=== PATIENT | female | born 1980 | race Caucasian/White ===

== ENCOUNTER 2020-06-20 16:39 | Emergency (ER) | payer MEDICAID ==
[~2020-06-20] VITALS: Ht 157.5 cm; Wt 100.0 kg
[~2020-06-20 16:39] MED LIST: CYCL-1 PO; METH4TAB81 PO; NAPR-56 PO
[2020-06-20] MEDS ORDERED: AMOX-422 PO (17:21)
[2020-06-20 17:42] VITALS: BP 160/80
== END 2020-06-20 17:35 | disposition home or self-care (01) ==
LOC: ER 16:40
DX: H72.92 Unspecified perforation of tympanic membrane, left ear (principal); H92.02 Otalgia, left ear; Z88.8 Allergy status to other drugs, medicaments and biological substances; Z79.2 Long term (current) use of antibiotics; Z79.899 Other long term (current) drug therapy
CPT/HCPCS: 99283

== ENCOUNTER 2020-09-18 19:57 | Emergency (ER) | payer MEDICAID ==
[~2020-09-18] VITALS: Ht 157.5 cm; Wt 100.0 kg
[2020-09-18 20:08] VITALS: BP 165/87
[2020-09-18] MEDS ORDERED: ERYT1OIN6 EACHEYE (22:28)
== END 2020-09-18 23:01 | disposition home or self-care (01) ==
LOC: ER 19:59
DX: H10.9 Unspecified conjunctivitis (principal); Z88.5 Allergy status to narcotic agent; Z79.899 Other long term (current) drug therapy
CPT/HCPCS: 99283

== ENCOUNTER 2024-05-07 09:34 | Emergency (ER) | payer MEDICAID ==
[~2024-05-07] VITALS: Ht 157.5 cm; Wt 97.7 kg
[2024-05-07] MEDS ORDERED: normal saline 1000ML IV soln IVB ONE (10:20)
[2024-05-07] MEDS ORDERED: ondansetron/PF 4mg/2ml inj IV ONE (10:20)
[2024-05-07 10:35] LABS: BASOPHILS % (AUTO) 0.5 % (0-1); EOSINOPHILS # (AUTO) 0.2 X10'3 (0-0.9); EOSINOPHILS % (AUTO) 2.8 % (0-6); HEMOGLOBIN 14.5 g/dl (12.0-16.0); LYMPHOCYTES # (AUTO) 1.9 X10'3 (1.1-4.8); LYMPHOCYTES % (AUTO) 26.5 % (21-51); MEAN CORPUSCULAR HEMOGLOBIN 29.2 PG (27.0-31.0); MEAN CORPUSCULAR HGB CONC 33.8 g/dL (33.0-36.5); MEAN CORPUSCULAR VOLUME 86.3 FL (78-98); MEAN PLATELET VOLUME 8.1 FL (7.4-10.4); MONOCYTES # (AUTO) 0.4 X10'3 (0-0.9); MONOCYTES % (AUTO) 4.9 % (2-12); NEUTROPHILS # (AUTO) 4.7 X10'3 (1.8-7.7); NEUTROPHILS % (AUTO) 65.3 % (42-75); PLATELET COUNT 227 X10'3 (140-440); RED BLOOD COUNT 4.98 X10'6 (4.20-5.60); RED CELL DISTRIBUTION WIDTH 13.9 % (11.5-14.5); WHITE BLOOD COUNT 7.3 X10'3 (4.5-11.0)
[2024-05-07 10:57] LABS: ALBUMIN 3.8 G/DL (3.4-5.0); ANION GAP 8 (8-16); BLOOD UREA NITROGEN 9 MG/DL (7-18); BUN/CREATININE RATIO 11.7 (10.0-20.0); CALCIUM 8.9 MG/DL (8.5-10.1); CHLORIDE 106 MMOL/L (99-107); CREATININE 0.77 MG/DL (0.40-0.90); GLUCOSE 97 MG/DL (70-104); LIPASE 31 U/L (16-77); POTASSIUM 3.8 MMOL/L (3.5-5.1); SODIUM 139 MMOL/L (135-145); TOTAL CARBON DIOXIDE 25.3 MMOL/L (24-32); eCRCL 75 ML/MIN; eGFR 82 ML/MIN
[2024-05-07 11:01] LABS: BILIRUBIN,URINE NEGATIVE (Neg); CLARITY,URINE CLOUDY (Clear); COLOR,URINE YELLOW (Yellow); GLUCOSE, URINE NEGATIVE (Neg); KETONES,URINE NEGATIVE (Neg); LEUKOCYTE ESTERASE ,URINE NEGATIVE (Neg); NITRITES, URINE NEGATIVE (Neg); OCCULT BLOOD,URINE NEGATIVE (Neg); PH,URINE 5.5 (4.8-8.0); PROTEIN,URINE NEGATIVE (Neg); UROBILINOGEN,URINE 0.2 E.U/dL (0.2-1.0)
[2024-05-07 11:02] LABS: UA COLLECTION TYPE CLN CATCH MIDSTREAM
[2024-05-07 11:03] LABS: AMORPHOUS URATES 1+; BACTERIA,URINE NONE SEEN /HPF (Neg); MUCUS STRANDS NONE SEEN /LPF (Neg); RBC,URINE NONE SEEN /HPF (0-2); SQUAMOUS EPITHELIAL CELL,UR NONE SEEN /LPF (FEW); WBC,URINE 0-4 /HPF (0-4)
[2024-05-07 11:43] VITALS: BP 120/60; PULSE 74; RESP 16; TEMP 97.3; O2SAT 100
== END 2024-05-07 11:45 | disposition home or self-care (01) ==
LOC: ER 09:35
DX: R10.11 Right upper quadrant pain (principal); R11.0 Nausea; R19.7 Diarrhea, unspecified; Z88.5 Allergy status to narcotic agent; Z79.899 Other long term (current) drug therapy
CPT/HCPCS: 36415; 76700; 80048; 81001; 83690; 85025; 99284; J7030